=== PATIENT | female | born 1960 | race Caucasian/White ===

== ENCOUNTER → 2023-10-18 | Emergency (ER) | payer OTHER ==
[~2023-10-18] MED LIST: HYDROCODONE/APAP 7.5/325 MG TAB ONE
--- NOTE | 2023-10-18 19:29 | RAD REPORT ---
EXAM DESCRIPTION: RAD -Hand Left 3 View - 10/18/2023 7:15 pm CLINICAL HISTORY: Left hand pain status post injury FINDINGS: No fracture or dislocation is seen.
--- NOTE | 2023-10-18 19:30 | RAD REPORT ---
EXAM DESCRIPTION: RADNasal Bones10/18/2023 7:15 pm CLINICAL HISTORY: Nasal pain FINDINGS: Comminuted nasal bone fracture. The distal nasal tip fracture is mildly depressed
--- NOTE | 2023-10-18 19:46 | ER ---
Nurse's Notes [facility] Name: Jacqueline Ahmadi Age: 62 yrs Sex: Female : 1960 Arrival Date: 10/18/2023 Time: 18:16 Bed 12 Private MD: Diagnosis: Fracture of nasal bones;Pain in left hand;Fall on same level from slipping, tripping and stumbling without subsequent striking against object Presentation: 10/18 18:34 Chief complaint: Patient states: MECHANICAL FALL LEAVING HOME 1645. Coronavirus screen: ll1 At this time, the client does not indicate any symptoms associated with coronavirus-19. Ebola Screen: No symptoms or risks identified at this time. Initial Sepsis Screen: Does the patient meet any 2 criteria? HR > 90 bpm. No. Patient's initial sepsis screen is negative. Does the patient have a suspected source of infection? No. Patient's initial sepsis screen is negative. Risk Assessment: Do you want to hurt yourself or someone else? Patient reports no desire to harm self or others. Onset of symptoms was October 18, 2023 at 16:45. 18:34 Method Of Arrival: Ambulatory ll1 18:34 Acuity: VIDHI 3 ll1 Triage Assessment: 18:35 General: Appears uncomfortable, Behavior is cooperative, appropriate for age, anxious. ll1 Pain: Complains of pain in left hand and nose. Historical: - Allergies: 18:35 Morphine; ll1 - PMHx: 18:35 Hypertensive disorder; Hypercholesterolemia; ll1 - Immunization history:: Adult Immunizations up to date. - Social history:: Smoking status: Patient denies any tobacco usage or history of. Screenin:04 [facility] ED Fall Risk Assessment (Adult) History of falling in the last 3 months, ap3 including since admission Yes- single mechanical fall (1 pt) Confusion or Disorientation No (0 pts) Intoxicated or Sedated No (0 pts) Impaired Gait No (0 pts) Mobility Assist Device Used No (0 pt) Altered Elimination No (0 pt). Abuse screen: Denies threats or abuse. Nutritional screening: No deficits noted. Tuberculosis screening: No symptoms or risk factors identified. Vital Signs: 18:34 BP 176 / 105; Pulse 105; Resp 20; Temp 98; Pulse Ox 100% ; ll1 ED Course: 18:18 Patient arrived in ED. im 18:34 Triage completed. ll1 18:35 Majo Nash FNP-C is [facility]. kb 18:35 Darryn Mckeon MD is Attending Physician. kb 18:35 Arm band placed on. ll1 19:04 Patient has correct armband on for positive identification. Call light in reach. Side ap3 rails up X 1. Adult w/ patient. 19:04 No provider procedures requiring assistance completed. ap3 19:16 Hand Left 3 View XRAY In Process Unspecified. EDMS 19:16 Nasal Bones XRAY In Process Unspecified. EDMS 19:47 Shwetha Phelps, RN is Primary Nurse. ap3 19:47 Provided Education on: medication prior to administration. ap3 19:55 Patient did not have IV access during this emergency room visit. ap3 Administered Medications: 19:02 Drug: Hydrocodone-Acetaminophen PO (7.5 mg-325 mg) 1 tabs PO once Route: PO; ap3 19:47 Follow up: Response: No adverse reaction ap3 Medication: 19:47 VIS not applicable for this client. ap3 Outcome: 19:45 Discharge ordered by . kb 19:55 Discharged to home ambulatory, with family, ap3 19:55 Condition: good 19:55 Discharge instructions given to patient, Instructed on discharge instructions, follow up and referral plans. medication usage, Demonstrated understanding of instructions, follow-up care, medications, Prescriptions given X 2, 19:55 Patient left the ED. ap3 Signatures: Dispatcher [employer] EDMS Majo Nash, CHANI BRAND-Shwetha Alejandra, RN RN ap3 Terell Álvarez RN RN ll1 Dede Rose im
--- NOTE | 2023-10-18 19:46 | EDPHYS ---
Physician Documentation [facility] Name: Jacqueline Ahmadi Age: 62 yrs Sex: Female : 1960 Arrival Date: 10/18/2023 Time: 18:16 Bed 12 Private MD: ED Physician Darryn Mckeon HPI: 10/18 21:42 This 62 yrs old Female presents to ER via Ambulatory with complaints of Fall Injury, kb Nose injury, Hand Injury - left. 21:42 Patient is a 62-year-old female who tripped while coming out of her front door and fell kb hitting her face on the ground. Complains of nose pain and left hand pain. Denies LOC.. Historical: - Allergies: 18:35 Morphine; ll1 - PMHx: 18:35 Hypertensive disorder; Hypercholesterolemia; ll1 - Immunization history:: Adult Immunizations up to date. - Social history:: Smoking status: Patient denies any tobacco usage or history of. ROS: 21:42 Constitutional: Negative for fever, chills, and weight loss, kb 21:42 ENT: Positive for Pain and swelling to nose, 21:42 MS/extremity: Positive for pain, of the left hand, 21:42 All other systems are negative, Exam: 21:42 Constitutional: This is a well developed, well nourished patient who is awake, alert, kb and in no acute distress. Head/Face: Normocephalic, atraumatic. Cardiovascular: Regular rate Respiratory: Respirations even and unlabored. No increased work of breathing. Talking in full sentences Skin: Warm, dry with normal turgor. Normal color. MS/ Extremity: Pulses equal, no cyanosis. Neurovascular intact. Full, normal range of motion. Neuro: Awake and alert, GCS 15, oriented to person, place, time, and situation. Moves all extremities. Normal gait. 21:42 ENT: Nose: External nose: abrasion is noted, contusion is noted, swelling is noted, Vital Signs: 18:34 BP 176 / 105; Pulse 105; Resp 20; Temp 98; Pulse Ox 100% ; ll1 MDM: 18:36 Patient medically screened. kb 21:44 Differential diagnosis: abrasion, contusion, fracture, laceration. Data reviewed: vital kb signs, nurses notes. Counseling: I had a detailed discussion with the patient and/or guardian regarding the historical points, exam findings, and any diagnostic results supporting the discharge/admit diagnosis, radiology results, the need for outpatient follow up, an ENT specialist, to return to the emergency department if symptoms worsen or persist or if there are any questions or concerns that arise at home. 10/18 18:39 Order name: Hand Left 3 View XRAY; Complete Time: 19:33 ll1 10/18 18:39 Order name: Nasal Bones XRAY; Complete Time: 19:33 ll1 Administered Medications: 19:02 Drug: Hydrocodone-Acetaminophen PO (7.5 mg-325 mg) 1 tabs PO once Route: PO; ap3 19:47 Follow up: Response: No adverse reaction ap3 Disposition Summary: 10/18/23 19:45 Discharge Ordered Notes: Location: Home kb Condition: Stable kb Diagnosis - Fracture of nasal bones kb - Pain in left hand kb - Fall on same level from slipping, tripping and stumbling without subsequent kb striking against object Followup: kb - With: Emergency Department - When: As needed - Reason: Worsening of condition Followup: kb - With: Private Physician - When: 2 - 3 days - Reason: Recheck today's complaints, Continuance of care, Re-evaluation by your physician Discharge Instructions: - Discharge Summary Sheet kb - Musculoskeletal Pain kb - Nasal Fracture, [id number] kb Forms: - Medication Reconciliation Form kb - Thank You Letter kb - Antibiotic Education kb - Prescription Opioid Use kb - Patient Portal Instructions kb - Leadership Thank You Letter kb Prescriptions: - Augmentin 875-125 mg Oral Tablet - take 1 tablet ORAL route every 12 hours for 10 days; 20 tablet; Refills: 0, kb Product Selection Permitted - Tramadol 50 mg Oral tablet - take 1 tablet ORAL route every 8 hours As needed as needed; 12 tablet; Refills: kb 0, Product Selection Permitted Signatures: Dispatcher [employer] Majo Stearns FNP-C FNP-Ckb Prokisch, Amanda RN RN ap3 Terell Álvarez RN RN ll1
[2023-10-18 22:08] VITALS: BP 176/105; TEMP 98; O2SAT 100
== END ==
LOC: ER 18:16
DX: S02.2XXA Fracture of nasal bones, initial encounter for closed fracture (principal); M79.642 Pain in left hand; W01.0XXA Fall on same level from slipping, tripping and stumbling without subsequent striking against object, initial encounter; I10 Essential (primary) hypertension; Z88.5 Allergy status to narcotic agent
CPT/HCPCS: 70160

== ENCOUNTER 2024-03-20 13:47 | Inpatient (IN) | payer OTHER ==
--- NOTE | 2024-03-20 15:15 | RAD REPORT ---
EXAM DESCRIPTION: RAD - Chest Single View - 03/20/2024 3:02 pm CLINICAL HISTORY: Cough;Dyspnea Chest pain. COMPARISON: <Comparisons> FINDINGS: Portable technique limits examination quality. The lungs are mildly emphysematous but grossly clear. The heart is normal in size. No displaced fract ures. IMPRESSION: No acute intrathoracic process suspected.
[2024-03-20 15:41] LABS: Specific Gravity 1.006 (1.005-1.030); Urine Bilirubin NEGATIVE (Negative); Urine Blood Negative (Negative); Urine Clarity Clear (Clear); Urine Color Colorless (Yellow); Urine Glucose NEGATIVE (Negative); Urine Ketones NEGATIVE (Negative); Urine Microscopic Reflex YN NO UMIC; Urine Nitrite NEGATIVE (Negative); Urine Protein NEGATIVE (Negative); Urine Urobilinogen Normal (Normal)
[2024-03-20 15:41] LABS: Absolute Basophils 0.2 K/uL (0-0.5); Absolute Eosinophils 0.2 K/uL (0-0.5); Absolute Lymphocytes (CBC) 3.7 K/uL (0.7-4.9); Absolute Monocytes 0.7 K/uL (0.1-1.3); Absolute Neutrophil 5.7 K/uL (1.8-8.0); Basophils % 1.4 % (0-1.3); Eosinophils % 1.9 % (0-4.4); Hematocrit 39.5 % (36.0-45.0); Hemoglobin 13.7 g/dL (12.0-15.0); MCH 31.8 pg (27.0-35.0); MCHC 34.6 g/dL (32.0-36.0); MCV 91.9 fL (80-100); MPV 8.3 fL (7.6-11.3); Neutrophils % 54.7 % (41.7-73.7); Nucleated Red Blood Cells % 0.1 % (0-0); Platelets 313 thou/uL (152-406); Red Cell Distribution Width 12.8 % (12.1-15.2)
[2024-03-20 15:42] LABS: PT Prothrombin Time 11.1 SECONDS (9.4-12.5); Protime INR 1.01
[2024-03-20 16:10] LABS: ALT/SGPT 33 U/L (13-56); AST/SGOT 40 U/L (15-37); Albumin 3.7 g/dL (3.4-5.0); Alkaline Phosphatase 88 U/L (45-117); Anion Gap 6.5 mEq/L (5.0-15.0); BUN Blood Urea Nitrogen 10 mg/dL (7-18); Bicarbonate 29 mEq/L (21-32); Bilirubin Total 0.5 mg/dL (0.2-1.0); Globulin 3.7 g/dL (2.3-3.5); Glomerular Filtration Rate 83 ml/min (=/>90); Glucose Level 105 mg/dL (74-106); Lipase 36 U/L (13-75); NT PRO-BNP 555 pg/mL (<125); Potassium 4.5 mEq/L (3.5-5.1); Protein, Total 7.4 g/dL (6.4-8.2); Sodium Level 136 mEq/L (136-145)
[2024-03-20 16:12] LABS: Bilirubin Direct < 0.2 mg/dL (0-0.2); Bilirubin Indirect, Calculated 0.3 mg/dL (0.2-0.8)
[2024-03-20] MEDS ORDERED: ASPIRIN 81 MG CHEWABLE TABLET ONE (16:15)
[2024-03-20] MEDS ORDERED: NA CHLORIDE 0.9% 1,000 ML ONE (16:16)
[2024-03-20] MEDS ORDERED: HEPARIN/D5W 25,000 UNIT/500 ML BAG IV ONE (16:48)
[2024-03-20] MEDS ORDERED: HEPARIN 5000 UNIT/ML 1 ML VIAL ONE (16:48)
--- NOTE | 2024-03-20 16:50 | ER ---
Nurse's Notes [facility] Name: Jacqueline Ahmadi Age: 63 yrs Sex: Female : 1960 Arrival Date: 03/20/2024 Time: 13:47 Bed 28 Private MD: Diagnosis: Non ST elevation OR;Essential (primary) hypertension;Unstable angina Presentation: 03/20 14:12 Chief complaint: Patient states: CHEST PAIN WITH PRESSURE AND HEAVINESS STARTED THIS db AM. STATES STARTED WITH PAIN IN EAR THEN WENT DOWN INTO CHEST. Coronavirus screen: Client denies travel out of the [place] in the last 14 days. At this time, the client does not indicate any symptoms associated with coronavirus-19. Ebola Screen: Patient negative for fever greater than or equal to 101.5 degrees Fahrenheit, and additional compatible Ebola Virus Disease symptoms Patient denies exposure to infectious person. Patient denies travel to an Ebola-affected area in the 21 days before illness onset. No symptoms or risks identified at this time. Initial Sepsis Screen: Does the patient meet any 2 criteria? No. Patient's initial sepsis screen is negative. Does the patient have a suspected source of infection? No. Patient's initial sepsis screen is negative. Risk Assessment: Do you want to hurt yourself or someone else? Patient reports no desire to harm self or others. Onset of symptoms was March 20, 2024. 14:12 Method Of Arrival: Ambulatory db 14:12 Acuity: VIDHI 2 db Triage Assessment: 14:14 General: Appears in no apparent distress. uncomfortable, Behavior is calm, cooperative. db Pain: Complains of pain in chest. Neuro: Level of Consciousness is awake, alert, obeys commands, Oriented to person, place, time, situation. Cardiovascular: Reports chest pain. Historical: - Allergies: 14:14 Morphine; db - Home Meds: 16:27 atorvastatin 20 mg oral tablet every day at bedtime [Active]; cholecalciferol (vitamin iw D3) 25 mcg (1,000 unit) oral capsule [Active]; montelukast 10 mg oral tablet daily [Active]; meloxicam 7.5 mg oral tablet daily [Active]; Fish Oil oral daily [Active]; 21:14 metoprolol tartrate 50 mg oral tablet 2 times per day [Active]; jw7 - PMHx: 14:14 Hypercholesterolemia; Hypertensive disorder; db - PSHx: 16:27 Cholecystectomy; iw - Immunization history:: Adult Immunizations unknown. - Infectious Disease History:: Denies. - Social history:: Smoking status: Patient/guardian denies using tobacco, Stopped _ months ago 1. - Family history:: not pertinent. Screenin:[address] [facility] ED Fall Risk Assessment (Adult) History of falling in the last 3 months, iw including since admission No falls in past 3 months (0 pts) Confusion or Disorientation No (0 pts) Intoxicated or Sedated No (0 pts) Impaired Gait No (0 pts) Mobility Assist Device Used No (0 pt) Altered Elimination No (0 pt) Score/Fall Risk Level 0 - 2 = Low Risk Oriented to surroundings, Maintained a safe environment. Abuse screen: Denies threats or abuse. Denies injuries from another. Nutritional screening: No deficits noted. Tuberculosis screening: No symptoms or risk factors identified. Assessment: 16:26 General: Appears in no apparent distress. Behavior is calm, cooperative. Pain: iw Complains of pain in chest Pain does not radiate. Pain currently is 0 out of 10 on a pain scale. at worst was 10 out of 10 on a pain scale. Quality of pain is described as heavy, pressure, Pain began 4 hours ago. Is intermittent. Neuro: Level of Consciousness is awake, alert, obeys commands, Oriented to person, place, time, situation, Moves all extremities. Full function. Cardiovascular: Reports chest pain, Patient's skin is warm and dry. Rhythm is sinus bradycardia. Respiratory: Respiratory effort is even, unlabored, Respiratory pattern is regular, symmetrical. GI: Abdomen is non-distended. Derm: Skin is intact, is healthy with good turgor. Musculoskeletal: Range of motion: intact in all extremities. 17:25 Reassessment: Patient appears in no apparent distress at this time. Patient and/or iw family updated on plan of care and expected duration. Pain level reassessed. Patient is alert, oriented x 3, equal unlabored respirations, skin warm/dry/pink. 18:52 Reassessment: Patient appears in no apparent distress at this time. Patient and/or iw family updated on plan of care and expected duration. Pain level reassessed. Patient is alert, oriented x 3, equal unlabored respirations, skin warm/dry/pink. 19:00 General: Appears in no apparent distress. comfortable, Behavior is calm, cooperative, jw7 appropriate for age. Pain: Complains of pain in chest Pain does not radiate. Pain currently is 0 out of 10 on a pain scale. at worst was 10 out of 10 on a pain scale. Quality of pain is described as heavy, pressure, Is intermittent. Neuro: Level of Consciousness is awake, alert, obeys commands, Oriented to person, place, time, situation. Cardiovascular: Heart tones S1 S2 present Capillary refill < 3 seconds Clubbing of nail beds is absent JVD is absent Patient's skin is warm and dry. Respiratory: Airway is patent Trachea midline Respiratory effort is even, unlabored, Respiratory pattern is regular, symmetrical. GI: Abdomen is flat, non-distended, Bowel sounds present X 4 quads. : No deficits noted. No signs and/or symptoms were reported regarding the genitourinary system. EENT: No deficits noted. No signs and/or symptoms were reported regarding the EENT system. Derm: Skin is intact, is healthy with good turgor, Skin is dry, Skin is normal, Skin temperature is warm. Musculoskeletal: Circulation, motion, and sensation intact. Range of motion: intact in all extremities. 20:04 Reassessment: Patient appears in no apparent distress at this time. Patient and/or jw7 family updated on plan of care and expected duration. Pain level reassessed. Patient is alert, oriented x 3, equal unlabored respirations, skin warm/dry/pink. Vital Signs: 14:12 BP 178 / 89; Pulse 59; Resp 18; Temp 98.1; Pulse Ox 98% on R/A; Weight 75.3 kg; Height db 5 ft. 4 in. ; 16:27 BP 157 / 92; Pulse 61; Resp 16; Pulse Ox 100% on R/A; Pain 0/10; iw 18:07 BP 176 / 88; Pulse 54; Resp 16; Pulse Ox 99% on R/A; iw 18:53 BP 158 / 72; Pulse 56; Resp 16; Pulse Ox 99% on R/A; iw 20:00 BP 170 / 81; Pulse 65; Resp 13 S; Pulse Ox 100% on R/A; jw7 21:00 BP 145 / 78; Pulse 72; Resp 18; Pulse Ox 100% ; jb4 22:00 BP 149 / 78; Pulse 62; Resp 15; Pulse Ox 100% ; jb4 14:12 Body Mass Index 28.49 (75.30 kg, 162.56 cm) db 16:27 Pain Scale: Adult iw ED Course: 13:50 Patient arrived in ED. ra3 13:58 Darryn Mckeon MD is Attending Physician. minnie 14:14 Triage completed. db 14:15 Arm band placed on. db 14:20 EKG done, by ED staff. db 15:04 XRAY Chest (1 view) In Process Unspecified. EDMS 15:28 Troponin HS Sent. as6 15:28 PT-INR Sent. as6 15:28 NT PRO-BNP Sent. as6 15:28 Magnesium Sent. as6 15:28 LFT's Sent. as6 15:28 CBC with Diff Sent. as6 15:28 Basic Metabolic Panel Sent. as6 15:29 Lipase Sent. as6 15:29 Inserted saline lock: 20 gauge in left antecubital area, using aseptic technique. Blood as6 collected. 15:33 Urinalysis w/ reflexes Sent. as6 15:40 [place] Francis, RN is Primary Nurse. iw 16:32 Patient has correct armband on for positive identification. Client placed on continuous iw cardiac and pulse oximetry monitoring. NIBP monitoring applied. classroom monitor on. 17:07 Jarred Giles MD is Hospitalizing Provider. minnie 17:35 Inserted saline lock: 20 gauge in right antecubital area, using aseptic technique. zm 19:00 Report received from ROWENA Bartholomew. jw7 19:14 Provided Education on: need for admit. iw 19:14 No provider procedures requiring assistance completed. Patient admitted, IV remains in iw place. O2 via RA. 20:02 Babs Uribe, RN is Primary Nurse. jw7 20:13 Gifty Wolf MD is Hospitalizing Provider. minnie Administered Medications: 16:26 Drug: Aspirin PO Chewable Tablet 162 mg PO once Route: PO; iw 18:55 Follow up: Response: No adverse reaction iw 16:26 Drug: NS 0.9% IV 1000 ml IV at 125 ml/hr continuous Route: IV; Rate: 125 ml/hr; Site: iw left antecubital; 18:55 Follow up: IV Status: Infusion continued upon admission iw 17:00 Drug: Heparin (OR-Bolus No thrombolytic) - HEParin IVP 60 units/kg IVP once; Max 5000 as6 units {Co-Signature: iw ([place] Francis RN).} Route: IVP; Site: left antecubital; 18:55 Follow up: Response: No adverse reaction iw 17:00 Drug: Heparin (OR Drip) 12 units/kg/hr - ([place] [address] units, D5W IV 500 ml) IV at as6 calculated rate Per protocol; Max initial rate 1000 units/hr {Co-Signature: iw ([place] Francis RN).} Route: IV; Rate: calculated rate; Site: left antecubital; 18:54 Follow up: IV Status: Infusion continued upon admission iw 17:51 Drug: Aspirin PO Chewable Tablet 162 mg PO once Route: PO; iw 18:55 Follow up: Response: No adverse reaction iw 17:51 Drug: Clopidogrel PO 300 mg PO once Route: PO; iw 18:55 Follow up: Response: No adverse reaction iw 17:51 Drug: Famotidine IVP 20 mg IVP once; dilute with 10 mL 0.9% NaCl; give over 2 minutes iw Route: IVP; Site: right antecubital; 18:55 Follow up: Response: No adverse reaction iw 17:51 Not Given (Duplicate Order): [id number] mg PO once iw 17:52 Drug: Atorvastatin PO 20 mg PO once Route: PO; iw 18:55 Follow up: Response: No adverse reaction iw 18:09 Not Given (Patient Refused): fentanyl (pf)25 mcg IVP once iw 18:09 Not Given (Patient Refused): ondansetron 4 mg IVP once; over 2 minutes iw 18:52 Drug: Metoprolol PO 25 mg PO once Route: PO; iw 19:14 Follow up: Response: No adverse reaction iw 18:54 Not Given (Other Intervention Used): [id number] mg PO once iw 19:03 Drug: Losartan PO 25 mg PO once Route: PO; iw 19:15 Follow up: Response: No adverse reaction iw Medication: 16:27 VIS not applicable for this client. iw Outcome: 16:50 ER care complete, transfer ordered by . minnie 17:08 Decision to Hospitalize by Provider. minnie 22:36 Admitted to ICU accompanied by nurse, family with patient, via stretcher, room 6, on jb4 monitor, with chart, 22:36 Condition: stable 22:36 Instructed on the need for admit, 22:38 Patient left the ED. jb4 Signatures: Dispatcher [employer] EDDarryn Delcid MD MD cha Williams, Irene, Arslan Overton RN, RN RN jb4 George Escobedo RN RN as6 Babs Uribe RN RN jw7 Chel Cook Danielle RN Jasmyne Moreno ra3 Florida Francis RN Corrections: (The following items were deleted from the chart) 21:15 16:27 Home Meds: metoprolol tartrate 25 mg Oral tablet 2 times per day; iw jw7
--- NOTE | 2024-03-20 16:50 | EDPHYS ---
Physician Documentation [facility] Name: Jacqueline Ahmadi Age: 63 yrs Sex: Female : 1960 Arrival Date: 03/20/2024 Time: 13:47 Bed 28 Private MD: CELESTINA Physician Darryn Mckeon HPI: 03/20 16:39 This 63 yrs old Female presents to ER via Ambulatory with complaints of Chest minnie Pain. 16:39 The patient or guardian reports chest pain that is located primarily in the substernal minnie area. Onset: 14 day(s) ago. The pain radiates to neck. Associated signs and symptoms: Pertinent positives: lightheadedness, nausea. The chest pain is described as a pressure. Modifying factors: The symptoms are alleviated by nothing. the symptoms are aggravated by nothing. Severity of pain: At its worst the pain was moderate in the emergency department the pain has improved moderately. The patient has experienced similar episodes in the past, several times. Historical: - Allergies: 14:14 Morphine; db - Home Meds: 16:27 atorvastatin 20 mg oral tablet every day at bedtime [Active]; cholecalciferol (vitamin iw D3) 25 mcg (1,000 unit) oral capsule [Active]; montelukast 10 mg oral tablet daily [Active]; meloxicam 7.5 mg oral tablet daily [Active]; Fish Oil oral daily [Active]; 21:14 metoprolol tartrate 50 mg oral tablet 2 times per day [Active]; jw7 - PMHx: 14:14 Hypercholesterolemia; Hypertensive disorder; db - PSHx: 16:27 Cholecystectomy; iw - Immunization history:: Adult Immunizations unknown. - Infectious Disease History:: Denies. - Social history:: Smoking status: Patient/guardian denies using tobacco, Stopped _ months ago 1. - Family history:: not pertinent. ROS: 16:39 Constitutional: Negative for fever, chills, and weight loss, Eyes: Negative for injury, minnie pain, redness, and discharge, ENT: Negative for injury, pain, and discharge, Neck: Negative for injury, pain, and swelling, Respiratory: Negative for shortness of breath, cough, wheezing, and pleuritic chest pain, Abdomen/GI: Negative for abdominal pain, nausea, vomiting, diarrhea, and constipation, Back: Negative for injury and pain, : Negative for injury, bleeding, discharge, and swelling, MS/Extremity: Negative for injury and deformity, Skin: Negative for injury, rash, and discoloration, Neuro: Negative for headache, weakness, numbness, tingling, and seizure, Psych: Negative for depression, anxiety, suicide ideation, homicidal ideation, and hallucinations, Allergy/Immunology: Negative for hives, rash, and allergies, Endocrine: Negative for neck swelling, polydipsia, polyuria, polyphagia, and marked weight changes, 16:39 Cardiovascular: Positive for chest pain, Exam: 16:39 Constitutional: This is a well developed, well nourished patient who is awake, alert, minnie and in no acute distress. Head/Face: Normocephalic, atraumatic. Eyes: Pupils equal round and reactive to light, extra-ocular motions intact. Lids and lashes normal. Conjunctiva and sclera are non-icteric and not injected. Cornea within normal limits. Periorbital areas with no swelling, redness, or edema. ENT: Nares patent. No nasal discharge, no septal abnormalities noted. Tympanic membranes are normal and external auditory canals are clear. Oropharynx with no redness, swelling, or masses, exudates, or evidence of obstruction, uvula midline. Mucous membranes moist. Neck: Trachea midline, no thyromegaly or masses palpated, and no cervical lymphadenopathy. Supple, full range of motion without nuchal rigidity, or vertebral point tenderness. No Meningismus. Chest/axilla: Normal chest wall appearance and motion. Nontender with no deformity. No lesions are appreciated. Respiratory: Lungs have equal breath sounds bilaterally, clear to auscultation and percussion. No rales, rhonchi or wheezes noted. No increased work of breathing, no retractions or nasal flaring. Abdomen/GI: Soft, non-tender, with normal bowel sounds. No distension or tympany. No guarding or rebound. No evidence of tenderness throughout. Back: No spinal tenderness. No costovertebral tenderness. Full range of motion. Female : Normal external genitalia. Skin: Warm, dry with normal turgor. Normal color with no rashes, no lesions, and no evidence of cellulitis. MS/ Extremity: Pulses equal, no cyanosis. Neurovascular intact. Full, normal range of motion. Neuro: Awake and alert, GCS 15, oriented to person, place, time, and situation. Cranial nerves II-XII grossly intact. Motor strength 5/5 in all extremities. Sensory grossly intact. Cerebellar exam normal. Normal gait. Psych: Awake, alert, with orientation to person, place and time. Behavior, mood, and affect are within normal limits. 16:39 Cardiovascular: Rate: normal, Rhythm: regular, Pulses: no pulse deficits are appreciated, Heart sounds: normal, normal S1and S2, no S3 or S4, no murmur, no rub, no gallop, Edema: is not appreciated, JVD: is not appreciated, 16:39 ECG was reviewed by the Attending Physician. Vital Signs: 14:12 BP 178 / 89; Pulse 59; Resp 18; Temp 98.1; Pulse Ox 98% on R/A; Weight 75.3 kg; Height db 5 ft. 4 in. ; 16:27 BP 157 / 92; Pulse 61; Resp 16; Pulse Ox 100% on R/A; Pain 0/10; iw 18:07 BP 176 / 88; Pulse 54; Resp 16; Pulse Ox 99% on R/A; iw 18:53 BP 158 / 72; Pulse 56; Resp 16; Pulse Ox 99% on R/A; iw 20:00 BP 170 / 81; Pulse 65; Resp 13 S; Pulse Ox 100% on R/A; jw7 21:00 BP 145 / 78; Pulse 72; Resp 18; Pulse Ox 100% ; jb4 22:00 BP 149 / 78; Pulse 62; Resp 15; Pulse Ox 100% ; jb4 14:12 Body Mass Index 28.49 (75.30 kg, 162.56 cm) db 16:27 Pain Scale: Adult iw MDM: 13:58 Patient medically screened. [facility] 18:01 Data reviewed: vital signs, nurses notes, EMS record, lab test result(s), EKG, [facility] radiologic studies, CT scan. 03/20 13:59 Order name: Basic Metabolic Panel; Complete Time: 16:32 [facility] 03/20 13:59 Order name: CBC with Diff; Complete Time: 16:32 [facility] 03/20 13:59 Order name: LFT's; Complete Time: 16:32 [facility] 03/20 13:59 Order name: Magnesium; Complete Time: 16:32 [facility] 03/20 13:59 Order name: NT PRO-BNP; Complete Time: 16:32 [facility] 03/20 13:59 Order name: PT-INR; Complete Time: 16:32 [facility] 03/20 13:59 Order name: Troponin HS; Complete Time: 16:32 [facility] 03/20 13:59 Order name: Lipase; Complete Time: 16:32 [facility] 03/20 13:59 Order name: Urinalysis w/ reflexes; Complete Time: 16:32 [facility] 03/20 17:27 Order name: Ptt, Activated iw 03/20 21:44 Order name: CBC with Automated Diff EDMS 03/20 21:44 Order name: CBC with Automated Diff EDMS 03/20 21:44 Order name: Comprehensive Metabolic Panel [facility] 03/20 21:44 Order name: Comprehensive Metabolic Panel [facility] 03/20 21:44 Order name: Lipid Profile [facility] 03/20 21:44 Order name: Lipid Profile [facility] 03/20 21:44 Order name: Troponin High Sensitivity [facility] 03/20 21:44 Order name: Troponin High Sensitivity [facility] 03/20 21:44 Order name: Troponin High Sensitivity [facility] 03/20 21:44 Order name: Troponin High Sensitivity [facility] 03/20 13:59 Order name: XRAY Chest (1 view); Complete Time: 16:32 [facility] 03/20 21:44 Order name: Echo with Doppler [facility] 03/20 21:44 Order name: CONS Physician Consult [facility] 03/20 13:59 Order name: Cardiac monitoring; Complete Time: 16:26 [facility] 03/20 13:59 Order name: EKG - Nurse/Tech; Complete Time: 14:20 [facility] 03/20 13:59 Order name: IV Saline Lock; Complete Time: 15:28 [facility] 03/20 13:59 Order name: Labs collected and sent; Complete Time: 15:28 [facility] 03/20 13:59 Order name: O2 Per Protocol; Complete Time: 16:26 [facility] 03/20 13:59 Order name: O2 Sat Monitoring; Complete Time: 16:26 [facility] EC:39 Rate is 57 beats/min. Rhythm is regular. QRS [place] is Normal. LA interval is normal. QRS minnie interval is normal. QT interval is normal. No Q waves. T waves are Normal. T waves are Inverted in lead III. ST Segment is depressed in lead III. Clinical impression: NSR w/ Non-specific ST/T Changes. Interpreted by me. Reviewed by me. Administered Medications: 16:26 Drug: Aspirin PO Chewable Tablet 162 mg PO once Route: PO; iw 18:55 Follow up: Response: No adverse reaction iw 16:26 Drug: NS 0.9% IV 1000 ml IV at 125 ml/hr continuous Route: IV; Rate: 125 ml/hr; Site: iw left antecubital; 18:55 Follow up: IV Status: Infusion continued upon admission iw 17:00 Drug: Heparin (CA-Bolus No thrombolytic) - HEParin IVP 60 units/kg IVP once; Max 5000 as6 units {Co-Signature: iw ([place] Francis RN).} Route: IVP; Site: left antecubital; 18:55 Follow up: Response: No adverse reaction iw 17:00 Drug: Heparin (CA Drip) 12 units/kg/[place] - ([place] [address] units, D5W IV 500 ml) IV at as6 calculated rate Per protocol; Max initial rate 1000 units/hr {Co-Signature: iw ([place] Francis RN).} Route: IV; Rate: calculated rate; Site: left antecubital; 18:54 Follow up: IV Status: Infusion continued upon admission iw 17:51 Drug: Aspirin PO Chewable Tablet 162 mg PO once Route: PO; iw 18:55 Follow up: Response: No adverse reaction iw 17:51 Drug: Clopidogrel PO 300 mg PO once Route: PO; iw 18:55 Follow up: Response: No adverse reaction iw 17:51 Drug: Famotidine IVP 20 mg IVP once; dilute with 10 mL 0.9% NaCl; give over 2 minutes iw Route: IVP; Site: right antecubital; 18:55 Follow up: Response: No adverse reaction iw 17:51 Not Given (Duplicate Order): [id number] mg PO once iw 17:52 Drug: Atorvastatin PO 20 mg PO once Route: PO; iw 18:55 Follow up: Response: No adverse reaction iw 18:09 Not Given (Patient Refused): fentanyl (pf)25 mcg IVP once iw 18:09 Not Given (Patient Refused): ondansetron 4 mg IVP once; over 2 minutes iw 18:52 Drug: Metoprolol PO 25 mg PO once Route: PO; iw 19:14 Follow up: Response: No adverse reaction iw 18:54 Not Given (Other Intervention Used): [id number] mg PO once iw 19:03 Drug: Losartan PO 25 mg PO once Route: PO; iw 19:15 Follow up: Response: No adverse reaction iw Disposition Summary: 03/20/24 17:08 Hospitalization Ordered Notes: Hospitalization Status: Inpatient Admission minnie Condition: Stable(03/20/24 17:08) minnie Problem: new(03/20/24 17:08) minnie Symptoms: have improved(03/20/24 17:08) minnie Bed/Room Type: Standard minnie Provider: Gifty Wolf(03/20/24 20:13) minnie Location: Intensive Care Unit(03/20/24 21:56) jb4 Room Assignment: 6-(03/20/24 21:56) jb4 Diagnosis - Non ST elevation CA(03/20/24 17:08) minnie - Essential (primary) hypertension(03/20/24 17:08) minnie - Unstable angina(03/20/24 17:08) minnie Forms: - Medication Reconciliation Form minnie - SBAR form minnie - Leadership Thank You Letter minnie Signatures: Dispatcher [employer] EDElis Garner, RN Darryn Nunez MD MD cha Williams, Irene, RN RN iw Arslan Zuniga RN RN jb4 George Escobedo RN RN as6 Babs Uribe RN RN jw7 Zuri Shetty RN [place] Zee RN iw Corrections: (The following items were deleted from the chart) 17:06 16:50 [facility] minnie minnie 17:06 16:50 's Administration System minnie minnie 17:06 16:50 Higher level of care minnie minnie 17:06 16:50 Fair minnie minnie 17:06 16:50 new minnie minnie 17:06 16:50 have improved minnie minnie 17:06 16:[address] elevation CA minnie minnie 17:06 16:50 Unstable angina minnie minnie 17:06 16:50 Essential (primary) hypertension minnie minnie 20:13 17:08 Jarred Giles minnie minnie 21:15 16:27 Home Meds: metoprolol tartrate 25 mg Oral tablet 2 times per day; iw jw7 21:45 17:08 Intensive Care Unit minnie kl 21:45 17:08 minnie kl 21:51 21:45 Telemetry/MedSurg (Inpatient) kl kl 21:51 21:45 406 kl kl 21:53 21:51 jb4 21:56 21:51 Telemetry/MedSurg ([facility]) [facility] 21:56 21:53 [facility] jb jb4
[2024-03-20] MEDS ORDERED: CLOPIDOGREL 75 MG TABLET ONE (17:43)
[2024-03-20] MEDS ORDERED: ATORVASTATIN 40 MG TAB ONE (17:43)
[2024-03-20] MEDS ORDERED: METOPROLOL TAR 25 MG TAB ONE (18:14)
[2024-03-20] MEDS ORDERED: lisinopriL 20 MG TAB ONE (18:15)
[2024-03-20] MEDS ORDERED: LOSARTAN POTASSIUM 50 MG TABLET ONE (18:58)
--- NOTE | 2024-03-20 21:35 | P.HP ---
Certification for Inpatient Patient admitted to: Inpatient With expected LOS: >2 Midnights Patient will require the following post-hospital care: None Practitioner: I am a practitioner with admitting privileges, knowledge of patient current condition, hospital course, and medical plan of care. Services: Services provided to patient in accordance with Admission requirements found in Title 42 Section 412.3 of the Code of Federal Regulations Patient History Date of Service: 03/20/24 Reason for admission: Chest pain History of Present Illness: 63-year-old with past medical history of hypertension, HLD presented with substernal chest pain radiating to the back and associated with left ear pain radiating to the jaw area. Patient states chest pain does not radiate to the jaw. Symptoms have been ongoing since the last 2 weeks. Status post for treatment with antibiotics for presumed ear ache by PCP. Symptoms continue to continue. She states chest pain today became associated with a feeling of heaviness in the chest. She presented to the ED because of persistent of symptoms. She states she is a former smoker and quit smoking just 2 weeks ago. Family history of cardiac disease. Patient denies any cough. She denies any shortness of breath. She denies any prior history of CAD. On presentation ED ED vital signs were stable, nontachycardic, EKG shows ST segment depression in the lead II and III, initial troponin elevated at 624. Cardiology consulted. Patient also given heparin/Plavix loading/aspirin and statin. She is currently chest pain-free. She has been admitted for unstable angina Allergies morphine Allergy (Verified 03/20/24 22:18) Shortness of breath - Past Medical/Surgical History Has patient received pneumonia vaccine in the past: No Diabetic: No -: Hypertension -: HLD -: Cholecystectomy - Family History Family History: Reviewed- Non-Contributory - Social History Smoking Status: Current some day smoker Counseled patient to stop smoking for: less than 10 minutes Smoking therapy provided: No Patient receptive to therapy: No Alcohol use: No CD- Drugs: No Caffeine use: No Place of Residence: Home Review of Systems Cardiovascular: Chest Pain Physical Examination - Physical Exam General: Alert, In no apparent distress, Oriented x3 HEENT: Atraumatic, Normocephalic, PERRLA Neck: 2+ carotid pulse no bruit, JVD not distended Respiratory: Clear to auscultation bilaterally, Normal air movement Cardiovascular: Normal pulses, Regular rate/rhythm, Normal S1 S2 Gastrointestinal: Normal bowel sounds, Soft and benign, Non-distended, No ascites Musculoskeletal: No clubbing, No swelling Neurological: Normal speech, Normal strength at 5/5 x4 extr, Cranial nerves 3-12 intact - Studies Laboratory Data (last 24 hrs) 03/20/24 03/20/24 03/20/24 15:26 15:26 15:26 WBC 10.50 Hgb 13.7 Hct 39.5 Plt Count 313 PT 11.1 INR 1.01 APTT 30.1 Sodium Potassium BUN Creatinine Glucose Magnesium Total Bilirubin AST ALT Alkaline Phosphatase Lipase 03/20/24 15:26 WBC Hgb Hct Plt Count PT INR APTT Sodium 136 Potassium 4.5 BUN 10 Creatinine 0.81 Glucose 105 Magnesium 2.0 Total Bilirubin 0.5 AST 40 H ALT 33 Alkaline Phosphatase 88 Lipase 36 Assessment and Plan - Problems (Diagnosis) (1) Unstable angina Current Visit: Yes Status: Acute (2) HTN (hypertension) Current Visit: Yes Status: Acute (3) HLD (hyperlipidemia) Current Visit: Yes Status: Acute - Plan Impression Unstable angina/non-ST elevation IN Elevated troponin Hypertension HLD Chronic tobacco use Plan Will admit to inpatient Placed on telemetry Continue aspirin and Plavix Lovenox 1 mg/kg every 12 Add low-dose LAWRENCE and beta-dorinda Continue statin Keep n.p.o. past midnight Might need cath in a.m. Follow troponin trend Full code Cardiology consult Smoking cessation advised. Total time spent review of record, evaluation greater than the 60-minute Plan to discharge in: Greater than 2 days - Advance Directives Does patient have a Living Will: No Does patient have a Durable POA for Healthcare: No - Code Status/Comfort Care Code Status: Full Code Physician Review: Patient Assessed, Agree with Above Assessment and Plan Time Spent Managing Pts Care (In Minutes): 70
[2024-03-20] MEDS ORDERED: MORPHINE 2 MG/ML SYR IV PRN (21:39)
[2024-03-20] MEDS ORDERED: ZOLPIDEM TARTRATE 5 MG TABLET PO PRN (21:39)
[2024-03-20] MEDS ORDERED: NITROGLYCERIN 0.4 MG/TAB SL PRN (21:39)
[2024-03-20] MEDS ORDERED: ONDANSETRON 4 MG/2 ML VIAL IV PRN (21:39)
[2024-03-20] MEDS: ENOXAPARIN 100 MG/ML SYR SQ SCH (22:00)
[2024-03-20] MEDS: ASPIRIN 325 MG TAB PO ONE (23:00)
[2024-03-21] MEDS: ENOXAPARIN 80 MG/0.8 ML SQ SCH (00:03)
[2024-03-21 00:22] VITALS: BMI 28.3
[2024-03-21 06:16] LABS: Absolute Basophils 0.2 K/uL (0-0.5); Absolute Eosinophils 0.2 K/uL (0-0.5); Absolute Lymphocytes (CBC) 4.4 K/uL (0.7-4.9); Absolute Monocytes 0.8 K/uL (0.1-1.3); Absolute Neutrophil 7.1 K/uL (1.8-8.0); Basophils % 1.3 % (0-1.3); Eosinophils % 1.6 % (0-4.4); Hemoglobin 12.7 g/dL (12.0-15.0); Lymphocytes % 34.5 % (15.3-44.8); MCH 32.1 pg (27.0-35.0); MCHC 35.3 g/dL (32.0-36.0); MCV 90.7 fL (80-100); Neutrophils % 56.6 % (41.7-73.7); Nucleated Red Blood Cells % 0.1 % (0-0); Platelets 283 thou/uL (152-406); RBC Red Blood Cell Count 3.96 M/uL (3.86-4.86); Red Cell Distribution Width 12.6 % (12.1-15.2)
[2024-03-21 06:46] LABS: Albumin 3.3 g/dL (3.4-5.0); Anion Gap 6.8 mEq/L (5.0-15.0); Bilirubin Total 0.5 mg/dL (0.2-1.0); Globulin 3.2 g/dL (2.3-3.5); Potassium 3.8 mEq/L (3.5-5.1); Protein, Total 6.5 g/dL (6.4-8.2)
[2024-03-21] MEDS: CLOPIDOGREL 75 MG TABLET PO SCH (09:02)
[2024-03-21] MEDS: ASPIRIN EC 81 MG TAB PO SCH (09:02)
[2024-03-21] MEDS: METOPROLOL TAR 50 MG TAB PO SCH (09:02)
[2024-03-21] MEDS: lisinopriL 20 MG TAB PO SCH (09:02)
--- NOTE | 2024-03-21 09:58 | P.PN ---
Subjective Date of Service: 03/21/24 Chief Complaint: Chest pain Pt is resting comfortably in bed. She denies any chest pain, SOB or fever. Waiting for Cardiology eval. troponin is elevated. Will continue therapeutic lovenox. No other complaints. Review of Systems General: Unremarkable Eyes: Unremarkable ENT: Unremarkable Respiratory: Unremarkable Cardiovascular: Unremarkable Gastrointestinal: Unremarkable Genitourinary: Unremarkable Musculoskeletal: Unremarkable Integumentary: Unremarkable Neurological: Unremarkable Lymphatics: Unremarkable Physical Examination - Vital Signs Temperature: 97.2 F Blood Pressure: 133/80 Pulse: 70 Respirations: 17 Pulse Ox (%): 99 - Physical Exam General: Alert, In no apparent distress, Oriented x3 HEENT: Atraumatic, Normocephalic, PERRLA Neck: Supple, 2+ carotid pulse no bruit, JVD not distended Respiratory: Clear to auscultation bilaterally, Normal air movement Cardiovascular: No edema, Normal pulses, Regular rate/rhythm, Normal S1 S2 Capillary refill: <2 Seconds Gastrointestinal: Normal bowel sounds, Soft and benign, Non-distended Musculoskeletal: No clubbing, No swelling, No contractures Integumentary: No rashes, No breakdown, No significant lesion, No tenderness/swelling Neurological: Normal speech, Normal strength at 5/5 x4 extr, Normal tone Lymphatics: No axilla or inguinal lymphadenopathy - Studies Laboratory Data (last 24 hrs) 03/20/24 03/20/24 03/20/24 15:26 15:26 15:26 WBC 10.50 Hgb 13.7 Hct 39.5 Plt Count 313 PT 11.1 INR 1.01 APTT 30.1 Sodium Potassium BUN Creatinine Glucose Magnesium Total Bilirubin AST ALT Alkaline Phosphatase Lipase 03/20/24 15:26 WBC Hgb Hct Plt Count PT INR APTT Sodium 136 Potassium 4.5 BUN 10 Creatinine 0.81 Glucose 105 Magnesium 2.0 Total Bilirubin 0.5 AST 40 H ALT 33 Alkaline Phosphatase 88 Lipase 36 Assessment And Plan - Plan Unstable angina/non-ST elevation TX: troponin is elevated ( 624 -> [id number]. ill continue therapeutic lovenox subq BID. Waiting for cardiology eval. Pt is NPO. Will continue statin, aspirin, plavix, BB and ACEI. Hypertension: Will continue lisinopril and metoprolol. HLD: atorvastatin Chronic tobacco use: Pt was advised to quit smoking. Will give nicotine patch. GI ppx: protonix DVT ppx: SCD Code: full Dispo: pending hospital course. Physician Review: Patient Assessed, Agree with Above Assessment and Plan
[2024-03-21] MEDS ORDERED: HEPA 1000U/500MLS 2,000 UNIT/1,000 ML BAG IV ONE (11:17)
[2024-03-21] MEDS ORDERED: NITROGLYCERIN/D5W 50 MG/250 ML BTL IV ONE (11:18)
[2024-03-21] MEDS ORDERED: LIDOCAINE 1% 20 ML MDV ONE (11:18)
[2024-03-21] MEDS ORDERED: FENTANYL CITR 100 MCG/2 ML ONE (11:18)
[2024-03-21] MEDS ORDERED: VERAPAMIL HCL 10 MG/4 ML VIAL IV ONE (11:18)
[2024-03-21] MEDS ORDERED: HEPARIN 5000 UNIT/ML 1 ML VIAL ONE (11:19)
[2024-03-21] MEDS ORDERED: MIDAZOLAM HCL 2 MG/2 ML INJ ONE (11:19)
[2024-03-21] MEDS ORDERED: TICAGRELOR 90 MG TABLET PO ONE (11:19)
[2024-03-21] MEDS ORDERED: ATROPINE SULF 1 MG/10 ML SYR IV ONE (11:19)
[2024-03-21] MEDS ORDERED: HEPARIN 10,000 UNIT/10 ML VIAL IV ONE (11:19)
[2024-03-21] MEDS ORDERED: ASPIRIN 325 MG TAB ONE (11:20)
[2024-03-21 11:49] LABS: Specific Gravity 1.013 (1.005-1.030); Urine Bilirubin NEGATIVE (Negative); Urine Blood Negative (Negative); Urine Clarity Clear (Clear); Urine Color Light-Yellow (Yellow); Urine Glucose NEGATIVE (Negative); Urine Ketones NEGATIVE (Negative); Urine Microscopic Reflex YN NO UMIC; Urine Nitrite NEGATIVE (Negative); Urine Protein NEGATIVE (Negative); Urine Urobilinogen Normal (Normal)
[2024-03-21] MEDS ORDERED: NA CHLORIDE 0.9% 500 ML ONE (12:03)
--- NOTE | 2024-03-21 13:51 | P.CNS ---
Date of Consult: 03/21/24 Chief Complaint: Chest pain History of Present Illness: Patient with PMH of HTN, HLD, Family history of CAD, tobacco abuse presented with chest pain that has been going on for two weeks, got worse yesterday, denies SOB, no palpitations, no syncope, pain is pressure in nature, no radi ation. Allergies morphine Allergy (Verified 03/20/24 23:33) Hives/Rash Home Medications: Metoprolol Tartrate [Lopressor] 50 mg PO BID 03/20/24 Atorvastatin Calcium [Lipitor] 20 mg PO BEDTIME 03/21/24 Cetirizine HCl 10 mg PO BEDTIME 03/21/24 Cholecalciferol (Vitamin D3) [Vitamin D 1000 Iu Tab] 1,000 unit PO DAILY 03/21/24 Gabapentin [Neurontin*] 100 mg PO TID 03/21/24 Garlic Extract [Garlic] 100 mg PO DAILY 03/21/24 Losartan Potassium 25 mg PO DAILY 03/21/24 Meloxicam 7.5 mg PO BID 03/21/24 Montelukast [Singulair] 10 mg PO BEDTIME 03/21/24 Multivit-Min/Iron/Folic/Lutein [Multivitamin Women 50 Plus Tab] 1 each PO DAILY 03/21/24 [place]-3/Dha/Epa/Fish Oil [Fish Oil 1,000 mg Softgel] 1 each PO DAILY 03/21/24 Ubidecarenone [Co Q-10] 200 mg PO DAILY 03/21/24 - Past Medical/Surgical History Diabetic: No -: Hypertension -: HLD -: hemorrhoidectomy -: Cholecystectomy -: Pelvic sx,plate in the neck(c3-C5) -: Achilles tendon Sx 1984 -: tonsillectomy - Family History Mother Medical History: Hypertension Father Medical History: Heart disease - Social History Alcohol use: Yes CD- Drugs: No Caffeine use: Yes Place of Residence: Home Review of Systems 10-point ROS is otherwise unremarkable Physical Examination Temp Pulse Resp BP Pulse Ox 97.9 F 69 18 116/72 99 03/21/24 12:00 03/21/24 12:00 03/21/24 12:00 03/21/24 12:00 03/21/24 12:00 General: Alert, In no apparent distress HEENT: Atraumatic, PERRLA, Mucous membr. moist/pink, EOMI, Sclerae nonicteric Neck: Supple, 2+ carotid pulse no bruit, No LAD, Without JVD or thyroid abnormality Respiratory: Clear to auscultation bilaterally, Normal air movement Cardiovascular: Regular rate/rhythm, Normal S1 S2 Gastrointestinal: Normal bowel sounds, No tenderness Musculoskeletal: No tenderness Integumentary: No rashes Neurological: Normal gait, Normal speech, Normal tone, Normal affect Lymphatics: No axilla or inguinal lymphadenopathy Laboratory Data (last 24 hrs) 03/20/24 03/20/24 03/20/24 15:26 15:26 15:26 WBC 10.50 Hgb 13.7 Hct 39.5 Plt Count 313 PT 11.1 INR 1.01 APTT 30.1 Sodium Potassium BUN Creatinine Glucose Magnesium Total Bilirubin AST ALT Alkaline Phosphatase Lipase 03/20/24 15:26 WBC Hgb Hct Plt Count PT INR APTT Sodium 136 Potassium 4.5 BUN 10 Creatinine 0.81 Glucose 105 Magnesium 2.0 Total Bilirubin 0.5 AST 40 H ALT 33 Alkaline Phosphatase 88 Lipase 36 - Problems (1) NSTEMI (non-ST elevated myocardial infarction) Current Visit: Yes Status: Acute Plan: Patient is s/p coronary angiogram that shown significant distal RCA diseas s/p PCI with Synergy CIARRA, also got moderate mid RCA and LAD disease. ASA 81 mg daily for life Continue Plavix 75 mg daily for 12 months Continue Lipitor 80 mg daily will need outpatient follow up with cardiology for stress test. (2) HLD (hyperlipidemia) Current Visit: Yes Status: Acute Plan: continue lipitor 80 mg daily lipid panel in 3 months (3) HTN (hypertension) Current Visit: Yes Status: Acute Plan: continue metoprolol and lisinopril.
[2024-03-21] MEDS: ACETAMINOPHEN 500 MG TAB PO PRN (15:06)
--- NOTE | 2024-03-21 20:03 | OP ---
Date of Procedure: 03/21/2024 Surgeon: Gilberto Small Procedures Performed: 1.Left heart catheterization. 2.Selective coronary angiogram. 3.Percutaneous coronary intervention of the distal right coronary artery with Synergy 3.0 x [address] ug-eluting stent. Indication For Procedure: [id number] OR. Sedation Time: 30 minutes with 1 of Versed and 25 fentanyl. Access: Right radial, closed by TR band. Complications: None. Estimated Blood Loss: Less than 50 cc. Description Of Procedure: After risks, benefits, and alternatives were explained to the patient, pat ient agreed to proceed with the procedure and signed informed consent. The patient was brought back to the hospital laboratory technician, prepped and draped in sterile fashion. Time-out was performed. Sedation was admini stered. Ultrasound-guided micropuncture technique, right radial access was obtained. A [place] 4 cath eter was advanced to the LV cavity. LVEDP was obtained. Pullback did not show any gradient. Same c atheter was used for selective angiogram of the left and right coronary system. Next, catheter was e xchanged over a J-wire with a JR4 guide. Heparin was administered. ACT therapeutic. Runthrough wir e into the RCA, pre-dilated the distal lesions with an NC 2.5 mm balloon. Next, Synergy 3.0 x 24 mm drug-eluting stent was placed to close the lesion, status post dilated with a 3.25 mm NC balloon. Fi nal angiogram shows JOAN-3 flow. Catheter was removed over a J-wire. Sheath was removed. TR band w as applied. Hemostasis was achieved and patient was moved back to recovery in stable condition. Findings: 1.Left main: Mild luminal irregularities. 2.LAD: Proximal to mid diffuse 50% to 60% disease with a focal 60% to 70% mid disease and then mid to distal mild LI. 3.Left circ: Mild luminal irregularities. 4.OM1, OM2: Mild luminal irregularities, left circ itself continues as small artery with diffuse 60 % to 70% disease. 5.RCA: Diffuse atherosclerosis, mid diffuse 50% disease, tortuous, then distal 99% disease. PCI do ne with Synergy 3.0 x 24 mm drug-eluting stent and distal diffuse mild luminal irregularities. 6.RPDA: Small artery with diffuse mid 60% to 70% disease. 7.RPLV: Mild luminal irregularities. 8.LVEDP is 8 mmHg. Assessment: 1.Significant distal RCA disease, status post percutaneous coronary intervention with Synergy 3.0 x 24 mm drug-eluting stent. 2.Moderate mid left anterior descending disease. 3.Moderate mid right coronary artery disease. Plan: 1.Aspirin 81 mg daily for life. 2.Brilinta 180 x1 was given in the hospital laboratory technician. 3.Continue Plavix 75 mg daily for 12 months. 4.Continue the aggressive medical treatment for CAD. 5.The patient needs to be seen as outpatient in Cardiology Clinic for a stress test to evaluate LAD and mid RCA disease. JEWLES/AUGUSTINA Voice ID: [id number] Report ID: [id number]
[2024-03-21] MEDS: ATORVASTATIN 80 MG TAB PO SCH (20:53)
[2024-03-22 05:21] LABS: Absolute Basophils 0.1 K/uL (0-0.5); Absolute Eosinophils 0.1 K/uL (0-0.5); Absolute Lymphocytes (CBC) 3.6 K/uL (0.7-4.9); Absolute Monocytes 0.8 K/uL (0.1-1.3); Absolute Neutrophil 5.4 K/uL (1.8-8.0); Basophils % 0.6 % (0-1.3); Eosinophils % 1.5 % (0-4.4); Hematocrit 38.8 % (36.0-45.0); Hemoglobin 12.9 g/dL (12.0-15.0); Lymphocytes % 35.7 % (15.3-44.8); MCH 30.8 pg (27.0-35.0); MCHC 33.2 g/dL (32.0-36.0); MCV 92.6 fL (80-100); MPV 8.2 fL (7.6-11.3); Monocytes % 7.8 % (3.3-12.3); Neutrophils % 54.4 % (41.7-73.7); Platelets 244 thou/uL (152-406); RBC Red Blood Cell Count 4.19 M/uL (3.86-4.86); Red Cell Distribution Width 12.9 % (12.1-15.2)
[2024-03-22 05:38] LABS: Albumin 3.2 g/dL (3.4-5.0); Albumin/Globulin Ratio 0.9 (1.1-1.8); Anion Gap 4.5 mEq/L (5.0-15.0); Bilirubin Total 0.8 mg/dL (0.2-1.0); Globulin 3.5 g/dL (2.3-3.5); Potassium 3.5 mEq/L (3.5-5.1); Protein, Total 6.7 g/dL (6.4-8.2)
[2024-03-22 07:52] LABS: Magnesium 1.9 mg/dL (1.6-2.4); Phosphorus 3.3 mg/dL (2.5-4.9)
[2024-03-22] MEDS: POTASSIUM CL SA 10 MEQ TAB PO ONE (08:46)
[2024-03-22] MEDS: NICOTINE 21 MG/PAT TD SCH (09:00)
[2024-03-22 09:30] VITALS: O2SAT 97
--- NOTE | 2024-03-22 09:35 | P.DS ---
Admission Date: 03/20/24 Discharge Date: 03/22/24 Disposition: ROUTINE DISCHARGE Discharge Condition: GOOD Reason for Admission: Chest pain Brief History of Present Illness: 63-year-old with past medical history of hypertension, HLD presented with substernal chest pain radiating to the back and associated with left ear pain radiating to the jaw area. Patient states chest pain does not radiate to the jaw. Symptoms have been ongoing since the last 2 weeks. Status post for treatment with antibiotics for presumed ear ache by PCP. Symptoms continue to continue. She states chest pain today became associated with a feeling of he aviness in the chest. She presented to the ED because of persistent of symptoms. She states she is a former smoker and quit smoking just 2 weeks ago. Family history of cardiac disease. Patient denies any cough. She denies any shortness of breath. She denies any prior history of CAD. On presentation ED ED vital signs were stable, nontachycardic, EKG shows ST segment depression in the lead II and III, initial troponin elevated at 624. Cardiology consulted. Patient also given heparin/Plavix loading/aspirin and statin. She is currently chest pain-free. She has been admitted for unstable angina Hospital Course: Pt is a 63 yo female with past medical history of hypertension, tobacco abuse, and HLD who presented with substernal chest pain radiating to the back and associated with left ear pain radiating to the jaw area. The chest pain progressively worsened and became associated with associated with a feeling of heaviness in the chest. She presented to the ED because of persistent of symptoms. On admission, EKG showed ST segment depression in the lead II and III, initial troponin elevated at 624_. [id number]. cardiology did cardiacath which showed significant distal RCA diseas s/p PCI with Synergy CIARRA, also got moderate mid RCA and LAD disease. We started ASA 81 mg daily for life, Plavix 75 mg daily for 12 months and Continue Lipitor 80 mg daily. We also started metoprolol and lisinopril for BP control. Pt was advised to follow up with [facility] [employer] for [place] stress test. We advised her to quit smoking and gave nicotine patch. Vital Signs/Physical Exam: Temp Pulse Resp BP Pulse Ox 97.2 F 66 15 149/94 H 97 03/22/24 00:00 03/22/24 08:46 03/22/24 06:00 03/22/24 08:46 03/22/24 06:00 Laboratory Data at Discharge: WBC 10.00 thou/uL (4.3-10.9) 03/22/24 05:01 Hgb 12.9 g/dL (12.0-15.0) 03/22/24 05:01 Hct 38.8 % (36.0-45.0) 03/22/24 05:01 Plt Count 244 thou/uL (152-406) 03/22/24 05:01 PT 11.1 SECONDS (9.4-12.5) 03/20/24 15:26 INR 1.01 03/20/24 15:26 APTT 30.1 SECONDS (24.3-36.9) 03/20/24 15:26 Sodium 137 mEq/L (136-145) 03/22/24 05:01 Potassium 3.5 mEq/L (3.5-5.1) 03/22/24 05:01 BUN 12 mg/dL (7-18) 03/22/24 05:01 Creatinine 0.69 mg/dL (0.55-1.02) 03/22/24 05:01 Glucose 107 mg/dL (74-106) H 03/22/24 05:01 Phosphorus 3.3 mg/dL (2.5-4.9) 03/22/24 05:01 Magnesium 1.9 mg/dL (1.6-2.4) 03/22/24 05:01 Total Bilirubin 0.8 mg/dL (0.2-1.0) 03/22/24 05:01 AST 66 U/L (15-37) H 03/22/24 05:01 ALT 33 U/L (13-56) 03/22/24 05:01 Alkaline Phosphatase 79 U/L (45-117) 03/22/24 05:01 Triglycerides 247 mg/dL (<150) H 03/21/24 06:04 Cholesterol 171 mg/dL (<200) 03/21/24 06:04 HDL Cholesterol 61 mg/dL (40-60) H 03/21/24 06:04 Cholesterol/HDL Ratio 2.80 03/21/24 06:04 Lipase 36 U/L (13-75) 03/20/24 15:26 Home Medications: Metoprolol Tartrate [Lopressor*] 50 mg PO BID 03/20/24 Cetirizine HCl 10 mg PO BEDTIME 03/21/24 Cholecalciferol (Vitamin D3) [Vitamin D 1000 Iu Tab*] 1,000 unit PO DAILY 03/21/24 Gabapentin [Neurontin*] 100 mg PO TID 03/21/24 Garlic Extract [Garlic] 100 mg PO DAILY 03/21/24 Losartan Potassium 25 mg PO DAILY 03/21/24 Meloxicam 7.5 mg PO BID 03/21/24 Montelukast [Singulair*] 10 mg PO BEDTIME 03/21/24 Multivit-Min/Iron/Folic/Lutein [Multivitamin Women 50 Plus Tab] 1 each PO DAILY 03/21/24 [place]-3/Dha/Epa/Fish Oil [Fish Oil 1,000 mg Softgel] 1 each PO DAILY 03/21/24 Ubidecarenone [Co Q-10] 200 mg PO DAILY 03/21/24 Aspirin 81 mg PO DAILY 90 Days #90 tab.chew 03/22/24 Atorvastatin Calcium [Lipitor] 80 mg PO BEDTIME 90 Days #90 tab 03/22/24 Clopidogrel Bisulfate [Plavix*] 75 mg PO DAILY 90 Days #90 tab 03/22/24 Metoprolol Tartrate [Lopressor*] 50 mg PO BID 30 Days #60 tab 03/22/24 Nicotine [Nicoderm*] 21 mg TD DAILY 42 Days #42 tab 03/22/24 lisinopriL [Prinivil*] 20 mg PO DAILY 30 Days #30 tab 03/22/24 New Medications: Aspirin 81 mg PO DAILY 90 Days #90 tab.chew Atorvastatin Calcium [Lipitor] 80 mg PO BEDTIME 90 Days #90 tab Metoprolol Tartrate [Lopressor*] 50 mg PO BID 30 Days #60 tab Nicotine [Nicoderm*] 21 mg TD DAILY 42 Days #42 tab Clopidogrel Bisulfate [Plavix*] 75 mg PO DAILY 90 Days #90 tab lisinopriL [Prinivil*] 20 mg PO DAILY 30 Days #30 tab Physician Discharge Instructions: Continue ad stacy activity as tolerated . Take plavix, aspirin, metoprolol, atorvastatin and other home meds as prescribed. Take the plavix and asprin for at least 1 year. Follow up with PCP and Cardiology within 1 - 2 weeks. Follow up with Cardiology to do Nuclear medicine stress test Diet: AHA Activity: Ad stacy [facility] [Primary Care Provider] -
[2024-03-22 09:58] VITALS: BP 146/89; TEMP 97.4
--- NOTE | 2024-03-22 10:44 | P.PN ---
Subjective Date of Service: 03/22/24 Chief Complaint: Chest pain Subjective: No new changes, No C/O voiced, Tolerating diet, Ambulating, Improving Review of Systems 10-point ROS is otherwise unremarkable Physical Examination - Vital Signs Temperature: 97.4 F Blood Pressure: 146/89 Pulse: 63 Respirations: 13 Pulse Ox (%): 97 - Physical Exam General: Alert, In no apparent distress HEENT: Atraumatic, PERRLA, EOMI Neck: Supple, JVD not distended Respiratory: Clear to auscultation bilaterally, Normal air movement Cardiovascular: Regular rate/rhythm, Normal S1 S2 Gastrointestinal: Normal bowel sounds, No tenderness Musculoskeletal: No tenderness Integumentary: No rashes Neurological: Normal speech, Normal tone, Normal affect Lymphatics: No axilla or inguinal lymphadenopathy - Studies Medications List Reviewed: Yes Assessment And Plan - Current Problems (Diagnosis) (1) NSTEMI (non-ST elevated myocardial infarction) Current Visit: Yes Status: Acute Plan: Patient is s/p coronary angiogram that shown significant distal RCA diseas s/p PCI with Synergy CIARRA, also got moderate mid RCA and LAD disease. ASA 81 mg daily for life Continue Plavix 75 mg daily for 12 months Continue Lipitor 80 mg daily will need outpatient follow up with cardiology for stress test. (2) HLD (hyperlipidemia) Current Visit: Yes Status: Acute Plan: continue lipitor 80 mg daily lipid panel in 3 months (3) HTN (hypertension) Current Visit: Yes Status: Acute Plan: continue metoprolol and lisinopril. Physician Review: Patient Assessed, Agree with Above Assessment and Plan
--- NOTE | 2024-03-22 11:26 | ECHO ---
HEIGHT: 5 ft 4 in WEIGHT: 165 lb 5.547 oz DATE OF STUDY: 03/22/[address]: Gifty Wolf MD 2-DIMENSIONAL: YES M.MODE: YES DOPPLER: YES COLOR FLOW: YES TDS: NO PORTABLE: YES DEFINITY: NO BUBBLE STUDY: NO DIAGNOSIS: ACUTE MYOCARDIAL INFARCTION CARDIAC HISTORY: CATHERIZATION: YES SURGERY: NO PROSTHETIC VALVE: NO PACEMAKER: NO MEASUREMENTS (cm) DIASTOLIC (NORMALS) SYSTOLIC (NORMALS) IVSd 0.9 (0.6-1.2) LA Diam 2.1 (1.9-4.0) LVEF 66% LVIDd 4.0 (3.5-5.7) LVIDs 2.6 (2.0-3.5) %FS 36% LVPWd 1.0 (0.6-1.2) Ao Diam 2.5 (2.0-3.7) 2 DIMENSIONAL ASSESSMENT: RIGHT ATRIUM: NORMAL LEFT ATRIUM: NORMAL RIGHT VENTRICLE: NORMAL LEFT VENTRICLE: NORMAL TRICUSPID VALVE: NORMAL MITRAL VALVE: NORMAL PULMONIC VALVE: NORMAL AORTIC VALVE: NORMAL PERICARDIAL EFFUSION: NONE AORTIC ROOT: NORMAL LEFT VENTRICULAR WALL MOTION: NORMAL. DOPPLER/COLOR FLOW: NORMAL. COMMENTS: 1. NORMAL LEFT VENTRICULAR SYSTOLIC FUNCTION, EJECTION FRACTION 60-65%, NORMAL WALL MOTION. 2. NORMAL DIASTOLIC FUNCTION. TECHNOLOGIST: KENJI RECINOS
--- NOTE | 2024-03-24 10:36 | EKG ---
Test Date: 2024-03-20 Test Time: 14:19:50 Air Dispatcher: DONNY MEASUREMENT RESULTS: Intervals: Rate: 57 MA: 134 QRSD: 82 QT: 424 QTc: 412 [place]: P: 39 MA: 134 QRS: 39 T: 30 INTERPRETIVE STATEMENTS: Sinus bradycardia Possible Left atrial enlargement Cannot rule out Anterior infarct, age undetermined Abnormal ECG No previous ECG available for comparison Electronically Signed On 03-24-24 10:35:12 CDT by Gilberto Small
== END 2024-03-22 10:57 | disposition home or self-care (01) | DRG 322 ==
LOC: ER 13:47 → 3RD-ICU 21:58
PROVIDERS: ADMIT Internal Medicine; ATTEND Hospitalist
PROC: 027034Z Dilation of Coronary Artery, One Artery with Drug-eluting Intraluminal Device, Percutaneous Approach (ICD-10-PCS; principal; 2024-03-21)
PROC: 4A023N7 Measurement of Cardiac Sampling and Pressure, Left Heart, Percutaneous Approach (ICD-10-PCS; 2024-03-21)
PROC: B2111ZZ Fluoroscopy of Multiple Coronary Arteries using Low Osmolar Contrast (ICD-10-PCS; 2024-03-21)
DX: I21.4 Non-ST elevation (NSTEMI) myocardial infarction (principal); I10 Essential (primary) hypertension; E78.00 Pure hypercholesterolemia, unspecified; I25.110 Atherosclerotic heart disease of native coronary artery with unstable angina pectoris; F17.200 Nicotine dependence, unspecified, uncomplicated; Z88.5 Allergy status to narcotic agent; Z79.82 Long term (current) use of aspirin; Z79.02 Long term (current) use of antithrombotics/antiplatelets; Z90.49 Acquired absence of other specified parts of digestive tract; Z79.899 Other long term (current) drug therapy
CPT/HCPCS: 36415; 71045; 76937; 80048; 80053; 80061; 80076; 81003; 82947; 83690; 83735; 83880; 84100; 84484; 85025; 85347; 85610; 85730; 92928; 93005; 93306; 93458; 99152; 99153; 99285; C1725; C1893; J0461; J1644; J2001; J2250; J3010; J7030; J7040; Q9966